=== PATIENT | female | born 1955 | race Caucasian/White ===

== ENCOUNTER → 2018-01-15 11:27 | Outpatient (CLI) | payer OTHER, SELFPAY | DX: Z23 Encounter for immunization (principal) | CPT/HCPCS: 90471; 90686 ==

== ENCOUNTER → 2018-11-20 14:36 | Outpatient (CLI) | payer MEDICARE, OTHER, SELFPAY | DX: Z23 Encounter for immunization (principal) | CPT/HCPCS: 90471; 90686 ==

== ENCOUNTER → 2020-01-16 12:31 | Outpatient (CLI) | payer MEDICARE, OTHER, SELFPAY ==
--- NOTE | 2020-01-16 | DI.RAD.S_ITS ---
PROCEDURE: XR DEXA AXIAL SKELETON INDICATIONS: SCREENING COMPARISON: None. FINDINGS: This blank DEXA report has been sent in error by the PACS system. The correct and complete report will be forthcoming in 1-2 days. Thank you for your patience and understanding. Dictated by: Linn Gaytan MD, PhD on 01/16/2020 at 13:40 Approved by: Linn Gaytan MD, PhD on 01/16/2020 at 13:40
== END ==
PROVIDERS: PCP Internal Medicine; Referring Provider Internal Medicine; Visit Provider Internal Medicine
DX: M81.0 Age-related osteoporosis without current pathological fracture (principal)
CPT/HCPCS: 77080

== ENCOUNTER → 2020-01-16 14:44 | Outpatient (CLI) | payer MEDICARE, OTHER, SELFPAY | PROVIDERS: PCP Internal Medicine; Referring Provider Internal Medicine; Visit Provider Internal Medicine | DX: Z23 Encounter for immunization (principal) | CPT/HCPCS: 90471; 90662 ==

== ENCOUNTER → 2020-03-06 13:38 | Outpatient (CLI) | payer MEDICARE, OTHER, SELFPAY ==
[2020-03-06] MEDS: COVID-19 VACC(MODERNA-1)/PF 100 MCG/0.5 ML VIAL IM (13:47)
== END ==
PROVIDERS: PCP Internal Medicine; Visit Provider Internal Medicine
DX: Z23 Encounter for immunization (principal)
CPT/HCPCS: 0011A; 91301

== ENCOUNTER → 2020-03-25 15:54 | Outpatient (CLI) | payer MEDICARE, OTHER, SELFPAY ==
--- NOTE | 2020-03-25 | DI.MG.S_ITS ---
BILATERAL DIGITAL SCREENING MAMMOGRAM 3D/2D WITH CAD: 03/25/2020 CLINICAL: Routine screening. Comparison is made to exams dated: 03/16/2017 mammogram, 02/08/2016 mammogram, and 02/17/2015 mammogram - outside location. The tissue of both breasts is predominantly fatty. Current study was also evaluated with a Computer Aided Detection (CAD) system. No significant masses, calcifications, or other findings are seen in either breast. There has been no significant interval change. IMPRESSION: NEGATIVE There is no mammographic evidence of malignancy. A 1 year screening mammogram is recommended. This exam was interpreted at Station ID: [id number]. NOTE: For mammograms, a report in lay terms will be sent to the patient. Approximately 15% of breast malignancies will not be visualized mammographically. In the management of a palpable breast mass, a negative mammogram must not discourage biopsy of a clinically suspicious lesion. Electronically Signed By: Jossue Jalloh M.D., jr/margaret:03/25/2020 16:58:05 letter sent: Normal Exam ACR BI-RADS Category 1: Negative 3341F
== END ==
PROVIDERS: PCP Internal Medicine; Referring Provider Internal Medicine; Visit Provider Internal Medicine
DX: Z12.31 Encounter for screening mammogram for malignant neoplasm of breast (principal)
CPT/HCPCS: 77063; 77067

== ENCOUNTER → 2020-04-02 15:00 | Outpatient (CLI) | payer MEDICARE, OTHER, SELFPAY ==
[2020-04-02] MEDS: COVID-19 VACC #2, MRNA(MOD) 100 MCG/0.5 ML VIAL IM (15:07)
== END ==
PROVIDERS: PCP Internal Medicine; Visit Provider Internal Medicine
DX: Z23 Encounter for immunization (principal)
CPT/HCPCS: 0012A; 91301

== ENCOUNTER → 2021-01-12 12:22 | Outpatient (CLI) | payer MEDICARE, OTHER, SELFPAY | PROVIDERS: PCP Internal Medicine; Referring Provider Internal Medicine; Visit Provider Internal Medicine | DX: Z23 Encounter for immunization (principal) | CPT/HCPCS: 90471; 90662 ==

== ENCOUNTER → 2021-09-28 13:57 | Outpatient (CLI) | payer MEDICARE, OTHER, SELFPAY ==
--- NOTE | 2021-09-28 13:59 | DI.MG.S_ITS ---
BILATERAL DIGITAL SCREENING MAMMOGRAM 3D/2D WITH CAD: 09/28/2021 CLINICAL: Routine screening. Comparison is made to exams dated: 03/25/2020 mammogram - [facility], 03/16/2017 mammogram, 02/08/2016 mammogram, and 02/17/2015 mammogram - outside location. There are scattered fibroglandular elements in both breasts. Current study was also evaluated with a Computer Aided Detection (CAD) system. No significant masses, calcifications, or other findings are seen in either breast. There has been no significant interval change. IMPRESSION: NEGATIVE There is no mammographic evidence of malignancy. A 1 year screening mammogram is recommended. Based on the Tyrer Cuzick model (a risk assessment model) the patient's lifetime risk is 4.6% and her 10 year risk is 2.4%. According to the ACR, ACS, and NCCN guidelines, an annual breast MRI exam along with mammogram is recommended if the patient's lifetime risk is 20% or greater. This exam was interpreted at Station ID: [id number]. NOTE: For mammograms, a report in lay terms will be sent to the patient. Approximately 15% of breast malignancies will not be visualized mammographically. In the management of a palpable breast mass, a negative mammogram must not discourage biopsy of a clinically suspicious lesion. Electronically Signed By: Jose Juan cole/margaret:09/28/2021 21:33:44 letter sent: Normal Exam ACR BI-RADS Category 1: Negative 3341F
== END ==
PROVIDERS: PCP Internal Medicine; Referring Provider Internal Medicine; Visit Provider Internal Medicine
DX: Z12.31 Encounter for screening mammogram for malignant neoplasm of breast (principal)
CPT/HCPCS: 77063; 77067

== ENCOUNTER → 2021-12-01 14:47 | Outpatient (CLI) | payer MEDICARE, OTHER, SELFPAY ==
--- NOTE | 2021-12-01 | DI.MRI.S_ITS ---
PROCEDURE: MR KNEE RT WO CON INDICATIONS: rt knee instabiliity TECHNIQUE: Noncontrast sagittal PD fast spin echo and T2 fast spin echo with fat saturation, sagittal 3-D FLASH with fat saturation; coronal T1 spin echo and PD fast spin echo with fat saturation, and axial PD fast spin echo with fat saturation through the knee. COMPARISON: None. FINDINGS: Image quality: Excellent. Anterior Cruciate Ligament: Mild mucoid degeneration. Posterior Cruciate Ligament: Intrasubstance signal is most likely related to mucoid degeneration rather than low-grade partial tearing. A posterior pericruciate cyst measures up to 7 mm in greatest dimension. Medial Collateral Ligament: Intact. Lateral Collateral Ligament: Intact. Medial Meniscus: There is complex tearing of the medial meniscus with a radial component at the posterior root attachment and a horizontal oblique component at the posterior horn and body extending to the inner third of the tibial articular surface. Lateral Meniscus: There is a subtle horizontal oblique tear of the body of the lateral meniscus extending to the inner third of the tibial articular surface. Medial and Lateral Tendons: The semimembranosus tendon insertions and meniscocapsular junction appear intact. Visualized portions of the pes anserinus tendons appear normal. No abnormal bursal fluid. The long and short heads of the biceps femoris tendon appear intact. The popliteus tendon appears intact. No signs of posterolateral corner injury. Iliotibial band appears normal. Anterior Structures: The quadriceps and patellar tendons appear intact. 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 The tibial tubercle-trochlear groove distance is within normal limits measuring less than 1 cm. The medial patellofemoral ligament appears mildly attenuated and lax, and chronic tearing is not excluded. No edema in the infrapatellar fat pad. Bones: No acute trabecular bone injury or fracture. Medial Femorotibial Cartilage: There is mild thinning of the articular cartilages at the central weight-bearing portion of the medial femorotibial compartment. Lateral Femorotibial Cartilage: Partial-thickness cartilage irregularity at the anterior weight-bearing portion of the lateral femoral condyle. Patellofemoral Cartilage: Focal full-thickness cartilage loss is seen at the median ridge of the patella. There is partial-thickness cartilage irregularity of the medial patellar facet as well as in the medial femoral trochlea and trochlear groove, where cartilage loss approaches full thickness. Soft Tissues: There is a moderate joint effusion. A trace medial popliteal cyst is present. The musculature surrounding the knee is normal in bulk. IMPRESSION: 1. Complex tearing of the medial meniscus with a radial component at the posterior root attachment as well as a horizontal oblique component at the posterior horn and body extending to the inner third of the tibial articular surface. There is mild extrusion of the meniscal body. 2. Suspected subtle horizontal oblique tearing of the body of the lateral meniscus extending to the inner third of the tibial articular surface. 3. 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 The tibial tubercle-trochlear groove distance is within normal limits. The medial patellofemoral ligament appears attenuated and chronic tearing is not excluded. 4. Focal full-thickness cartilage loss at the median ridge of the patella and likely in the trochlear groove. 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 5. Moderate joint effusion. Dictated by: Clarence Mares M.D. on 12/02/2021 at 9:27 Approved by: Clarence Mares M.D. on 12/02/2021 at 9:40
== END ==
PROVIDERS: PCP Internal Medicine; Referring Provider Internal Medicine; Visit Provider Internal Medicine
DX: M25.361 Other instability, right knee (principal); S83.231A Complex tear of medial meniscus, current injury, right knee, initial encounter; M94.261 Chondromalacia, right knee; M25.461 Effusion, right knee
CPT/HCPCS: 73721

== ENCOUNTER → 2021-12-31 12:47 | Outpatient (CLI) | payer MEDICARE, OTHER, SELFPAY | PROVIDERS: PCP Internal Medicine; Referring Provider Internal Medicine; Visit Provider Internal Medicine | DX: Z23 Encounter for immunization (principal) | CPT/HCPCS: 90471; 90686 ==

== ENCOUNTER → 2023-01-16 14:56 | Outpatient (CLI) | payer MEDICARE, OTHER, SELFPAY | PROVIDERS: PCP Internal Medicine; Referring Provider Family Medicine; Visit Provider Family Medicine | DX: Z23 Encounter for immunization (principal) | CPT/HCPCS: 90471; 90686 ==

== ENCOUNTER → 2024-01-18 | Outpatient (CLI) | payer MEDICARE, OTHER, SELFPAY | PROVIDERS: PCP Internal Medicine; Referring Provider Internal Medicine; Visit Provider Internal Medicine | DX: Z23 Encounter for immunization (principal) | CPT/HCPCS: 90471; 90656 ==